=== PATIENT | male | born 1955 | race Two or more races ===

== ENCOUNTER 2018-10-06 19:29 | Emergency (ER) | payer MEDICAID ==
[~2018-10-06] VITALS: Ht 157.5 cm; Wt 64.5 kg
[~2018-10-06 19:29] MED LIST: ADVAIR PO; AMLO-512 PO; ASPI81 PO; CALC25 PO; CARV6 PO; FOLI1TAB61 PO; HYDR-2924 PO; SEVEC800 PO
[2018-10-06 20:01] LABS: GLUCOSE,POINT OF CARE 149 MG/DL (70-110)
[2018-10-06 21:06] LABS: BASOPHILS % (AUTO) 1.2 % (0.0-2.0); EOSINOPHILS % (AUTO) 2.5 % (1.0-6.0); HEMATOCRIT 29.6 % (41-53); HEMOGLOBIN 9.2 g/dL (13.5-17.5); LYMPHOCYTES # (AUTO) 1.7 K/uL (1.0-4.8); LYMPHOCYTES % (AUTO) 25.1 % (22.0-44.0); MEAN CORPUSCULAR HEMOGLOBIN 26.2 pg (26.0-34.0); MEAN CORPUSCULAR HGB CONC 31.2 G/dL (31.0-37.0); MEAN CORPUSCULAR VOLUME 84 fL (80-100); MONOCYTES # (AUTO) 0.6 K/uL (0.1-1.0); MONOCYTES % (AUTO) 8.8 % (2.0-9.0); NEUTROPHILS # (AUTO) 4.2 K/uL (1.8-7.7); NEUTROPHILS % (AUTO) 62.4 % (40.0-70.0); PLATELET COUNT (AUTO) 396 K/uL (150-450); RED BLOOD CELL COUNT(AUTO) 3.52 MIL/uL (4.50-5.90); RED CELL DISTRIBUTION WIDTH 16.2 % (11.5-14.5)
[2018-10-06 21:18] LABS: CALCIUM, TOTAL 8.8 mg/dL (8.8-10.5); CREATININE 3.96 mg/dL (0.60-1.30); POTASSIUM 5.1 mmol/L (3.5-5.1)
[2018-10-06 21:19] LABS: PROTHROMBIN TIME 10.4 SEC (9.4-11.6)
[2018-10-06 21:25] LABS: ALBUMIN 2.8 g/dL (3.4-5.0); BILIRUBIN,TOTAL 0.2 mg/dL (0.1-1.0); TOTAL PROTEIN, SERUM 6.9 g/dL (6.4-8.2)
[2018-10-06] MEDS ORDERED: LORazepam 1 MG TABLET PO ONE (21:45)
[2018-10-06 21:48] LABS: APPEARANCE,URINE CLEAR (CLEAR); BILIRUBIN,URINE NEGATIVE (NEGATIVE); GLUCOSE, URINE (UA) 100 mg/dL (NEGATIVE); KETONES,URINE NEGATIVE (NEGATIVE); LEUKOCYTE ESTERASE ,URINE NEGATIVE (NEGATIVE); NITRATE,URINE NEGATIVE (NEGATIVE); OCCULT BLOOD,URINE NEGATIVE (NEGATIVE); PH,URINE 7.5 (5.0-8.0); PROTEIN,URINE SEE CONFIRM (NEGATIVE); UROBILINOGEN,URINE 0.2 mg/dL (<=1.0)
[2018-10-06 22:07] LABS: BACTERIA,URINE None Seen /HPF (None Seen); RBC,URINE 0-2 /HPF (0-2); WBC,URINE None Seen /HPF (0-5)
[2018-10-06 22:08] LABS: SQUAMOUS EPITHELIAL CELL,UR Rare /LPF (None Seen); SULFOSALICYLIC ACID,URINE 3+ (Negative)
[2018-10-06] MEDS ORDERED: DiphenhydrAMINE HCL 50 MG/ML VIAL IVP ONE (22:30)
[2018-10-06 22:54] VITALS: BP 139/78
== END 2018-10-06 23:03 | disposition home or self-care (01) ==
LOC: EMS 19:29
DX: I12.0 Hypertensive chronic kidney disease with stage 5 chronic kidney disease or end stage renal disease (principal); E11.22 Type 2 diabetes mellitus with diabetic chronic kidney disease; N18.6 End stage renal disease; F41.9 Anxiety disorder, unspecified; M62.838 Other muscle spasm; E78.00 Pure hypercholesterolemia, unspecified; J44.9 Chronic obstructive pulmonary disease, unspecified; Z99.2 Dependence on renal dialysis; Z79.82 Long term (current) use of aspirin
CPT/HCPCS: 36415; 71045; 80053; 81001; 82962; 83880; 84484; 85025; 85610; 85730; 93005; 96374; 99285; J1200

== ENCOUNTER 2022-05-16 14:02 | Inpatient (IN) | payer MEDICARE, OTHER ==
[~2022-05-16] VITALS: Ht 153 cm; Wt 66.1 kg
[~2022-05-16 14:02] MED LIST changes: +AMLO-258 PO; -AMLO-512 PO; +ASPI-1450 PO; -ASPI81 PO; +CALC0.2521 PO; -CALC25 PO; -HYDR-2924 PO; +HYDR50TA36 PO; +SEVE800T17 PO; -SEVEC800 PO
[2022-05-16 15:10] LABS: BASOPHILS % (AUTO) 0.6 % (0.0-2.0); EOSINOPHILS % (AUTO) 1.4 % (1.0-6.0); LYMPHOCYTES # (AUTO) 2.2 K/uL (1.0-4.8); LYMPHOCYTES % (AUTO) 30.5 % (22.0-44.0); MEAN CORPUSCULAR HEMOGLOBIN 27.2 pg (26.0-34.0); MEAN CORPUSCULAR HGB CONC 30.8 G/dL (31.0-37.0); MEAN CORPUSCULAR VOLUME 88 fL (80-100); MONOCYTES # (AUTO) 0.6 K/uL (0.1-1.0); MONOCYTES % (AUTO) 8.2 % (2.0-9.0); NEUTROPHILS # (AUTO) 4.4 K/uL (1.8-7.7); NEUTROPHILS % (AUTO) 59.3 % (40.0-70.0); PLATELET COUNT (AUTO) 226 K/uL (150-450); RED BLOOD CELL COUNT(AUTO) 2.08 MIL/uL (4.50-5.90); RED CELL DISTRIBUTION WIDTH 16.5 % (11.5-14.5)
[2022-05-16 15:17] LABS: HEMATOCRIT 18.4 % (41-53); HEMOGLOBIN 5.7 g/dL (13.5-17.5)
[2022-05-16 15:20] LABS: PROTHROMBIN TIME 10.4 SEC (9.4-11.6)
[2022-05-16 15:22] LABS: COVID AG,FIA SOURCE NASOPHARYNGEAL
[2022-05-16 15:23] LABS: CALCIUM, TOTAL 8.5 mg/dL (8.8-10.5); CREATININE 3.3 mg/dL (0.60-1.30); POTASSIUM 4.2 mmol/L (3.5-5.1)
[2022-05-16 15:29] LABS: ALBUMIN 3.2 g/dL (3.4-5.0); BILIRUBIN,TOTAL 0.4 mg/dL (0.1-1.0); TOTAL PROTEIN, SERUM 6.3 g/dL (6.4-8.2)
[2022-05-16] MEDS ORDERED: ACETAMINOPHEN 500 MG TABLET PO ONE (15:30)
[2022-05-16] MEDS ORDERED: DiphenhydrAMINE HCL 25 MG CAPSULE PO ONE (15:30)
[2022-05-16 15:41] LABS: LACTIC ACID 1.9 mmol/L (0.4-2.0)
[2022-05-16 15:50] LABS: % IRON SATURATION 27.5 % (30-44)
[2022-05-16 16:45] VITALS: BP 149/58
[2022-05-16 17:00] VITALS: BP 152/59
[2022-05-16 17:30] VITALS: BP 160/61
[2022-05-16 18:00] VITALS: BP 149/67
[2022-05-16] MEDS ORDERED: PANTOPRAZOLE SODIUM 80 MG in SODIUM CHLORIDE 0.9% 100 ML IV SCH (18:00)
[2022-05-16] MEDS ORDERED: PANTOPRAZOLE SODIUM 40 MG/VIAL IVP ONE (18:00)
[2022-05-16 19:00] LABS: HEMATOCRIT 23.5 % (41-53); HEMOGLOBIN 7.6 g/dL (13.5-17.5)
[2022-05-16] MEDS ORDERED: HYDROCODONE/ACETAMINOPHEN 5-325 MG TABLET PO PRN (21:15)
[2022-05-16] MEDS ORDERED: ZOLPIDEM TARTRATE 5 MG TABLET PO PRN (21:15)
[2022-05-16] MEDS ORDERED: ACETAMINOPHEN 325 MG TABLET PO PRN (21:15)
[2022-05-16] MEDS ORDERED: IPRATROPIUM BROMIDE 0.5 MG/2.5 ML NEB SOLUTION NEB PRN (21:15)
[2022-05-16] MEDS ORDERED: MORPHINE SULFATE 2 MG/ML SYRINGE IVP PRN (21:15)
[2022-05-16] MEDS ORDERED: ONDANSETRON HCL 4 MG/2 ML VIAL IVP PRN (21:15)
[2022-05-16] MEDS ORDERED: BISACODYL 10 MG RECTAL RECTAL SUPPOSITORY PR PRN (21:15)
[2022-05-16] MEDS ORDERED: MAGNESIUM HYDROXIDE SUSPENSION 30 ML UDCUP PO PRN (21:15)
[2022-05-16] MEDS ORDERED: ALBUTEROL SULFATE 2.5 MG/0.5 ML NEB SOLUTION NEB PRN (21:15)
[2022-05-16 21:56] LABS: HEMATOCRIT 22.7 % (41-53); HEMOGLOBIN 7.4 g/dL (13.5-17.5)
[2022-05-16] MEDS: METOPROLOL TARTRATE 25 MG TABLET PO SCH (22:09)
[2022-05-16 23:20] VITALS: BP 113/89
[2022-05-17] VITALS (7 sets, daily range): BP systolic 120–170; BP diastolic 50–66
[2022-05-17] MEDS ORDERED: PANTOPRAZOLE SODIUM 80 MG in SODIUM CHLORIDE 0.9% 100 ML IV SCH (06:00)
[2022-05-17 06:16] LABS: BASOPHILS % (AUTO) 0.6 % (0.0-2.0); EOSINOPHILS % (AUTO) 1.5 % (1.0-6.0); HEMOGLOBIN 7.6 g/dL (13.5-17.5); LYMPHOCYTES # (AUTO) 2.1 K/uL (1.0-4.8); LYMPHOCYTES % (AUTO) 31.3 % (22.0-44.0); MEAN CORPUSCULAR HEMOGLOBIN 28.4 pg (26.0-34.0); MEAN CORPUSCULAR HGB CONC 32.8 G/dL (31.0-37.0); MEAN CORPUSCULAR VOLUME 87 fL (80-100); MONOCYTES # (AUTO) 0.6 K/uL (0.1-1.0); MONOCYTES % (AUTO) 8.4 % (2.0-9.0); NEUTROPHILS # (AUTO) 3.9 K/uL (1.8-7.7); NEUTROPHILS % (AUTO) 58.2 % (40.0-70.0); PLATELET COUNT (AUTO) 219 K/uL (150-450); RED BLOOD CELL COUNT(AUTO) 2.66 MIL/uL (4.50-5.90)
[2022-05-17 07:11] LABS: CALCIUM, TOTAL 8.6 mg/dL (8.8-10.5); CHOL/HDL RATIO 4.6 (4.2-7.3); CREATININE 4.81 mg/dL (0.60-1.30); POTASSIUM 5.2 mmol/L (3.5-5.1)
[2022-05-17] MEDS ORDERED: PEG 3350/NA SULF,BICARB,CL/KCL 4000 ML SOLUTION PO ONE (08:00)
[2022-05-17] MEDS: FOLIC ACID/VIT B COMPLEX AND C TABLET PO SCH (08:24)
[2022-05-17] MEDS: HydrALAZINE HCL 50 MG TABLET PO SCH ×3 (08:25→20:42)
[2022-05-17] MEDS: AmLODIPine BESYLATE 10 MG TABLET PO SCH (08:25)
[2022-05-17] MEDS: METOPROLOL TARTRATE 25 MG TABLET PO SCH ×2 (08:25→20:42)
[2022-05-17] MEDS: ATORVASTATIN CALCIUM 40 MG TABLET PO SCH (08:25)
[2022-05-17] MEDS: CARVEDILOL 6.25 MG TABLET PO SCH ×2 (08:25→20:42)
[2022-05-17] MEDS: SEVELAMER CARBONATE 800 MG TABLET PO SCH ×3 (08:25→16:59)
[2022-05-17] MEDS: CALCITRIOL 0.25 MCG CAPSULE PO SCH (08:25)
[2022-05-17] MEDS ORDERED: [UNRECOGNIZED DRUG - OTHER] PO SCH (09:00)
[2022-05-17 10:04] LABS: HEMATOCRIT 24.2 % (41-53); HEMOGLOBIN 7.9 g/dL (13.5-17.5)
[2022-05-18] VITALS (15 sets, daily range): BP systolic 121–192; BP diastolic 51–84
[2022-05-18] MEDS: SEVELAMER CARBONATE 800 MG TABLET PO SCH ×3 (08:00→17:53)
[2022-05-18] MEDS: AmLODIPine BESYLATE 10 MG TABLET PO SCH (09:00)
[2022-05-18] MEDS: METOPROLOL TARTRATE 25 MG TABLET PO SCH ×2 (09:00→20:12)
[2022-05-18] MEDS: CARVEDILOL 6.25 MG TABLET PO SCH ×2 (09:00→20:12)
[2022-05-18] MEDS ORDERED: PANTOPRAZOLE SODIUM 80 MG in SODIUM CHLORIDE 0.9% 100 ML IV SCH (10:00)
[2022-05-18 10:24] LABS: BASOPHILS % (AUTO) 0.8 % (0.0-2.0); EOSINOPHILS % (AUTO) 1.3 % (1.0-6.0); HEMATOCRIT 22.8 % (41-53); HEMOGLOBIN 7.3 g/dL (13.5-17.5); LYMPHOCYTES # (AUTO) 1.3 K/uL (1.0-4.8); MEAN CORPUSCULAR HEMOGLOBIN 27.8 pg (26.0-34.0); MEAN CORPUSCULAR HGB CONC 31.8 G/dL (31.0-37.0); MEAN CORPUSCULAR VOLUME 88 fL (80-100); MONOCYTES # (AUTO) 0.6 K/uL (0.1-1.0); MONOCYTES % (AUTO) 8.7 % (2.0-9.0); NEUTROPHILS # (AUTO) 4.9 K/uL (1.8-7.7); NEUTROPHILS % (AUTO) 70.2 % (40.0-70.0); PLATELET COUNT (AUTO) 202 K/uL (150-450); RED BLOOD CELL COUNT(AUTO) 2.61 MIL/uL (4.50-5.90); RED CELL DISTRIBUTION WIDTH 15.9 % (11.5-14.5)
[2022-05-18] MEDS ORDERED: SODIUM CHLORIDE 0.9% 1,000 ML ONE (10:32)
[2022-05-18 10:34] LABS: CALCIUM, TOTAL 8.5 mg/dL (8.8-10.5); CREATININE 6.86 mg/dL (0.60-1.30); POTASSIUM 5.4 mmol/L (3.5-5.1)
[2022-05-18] MEDS ORDERED: EPOETIN ALFA 10,000 UNITS/ML VIAL SQ SCH (11:55)
[2022-05-18 11:58] LABS: % IRON SATURATION 15.8 % (30-44)
[2022-05-18] MEDS ORDERED: LIDOCAINE/PF 2% 5 ML VIAL IM ONE (12:00)
[2022-05-18] MEDS ORDERED: PROPOFOL 1% 20 ML VIAL IVP ONE (12:00)
[2022-05-18] MEDS: FOLIC ACID/VIT B COMPLEX AND C TABLET PO SCH (12:34)
[2022-05-18] MEDS: HydrALAZINE HCL 50 MG TABLET PO SCH ×3 (12:34→20:12)
[2022-05-18] MEDS: CALCITRIOL 0.25 MCG CAPSULE PO SCH (12:34)
[2022-05-18] MEDS: ATORVASTATIN CALCIUM 40 MG TABLET PO SCH (12:34)
[2022-05-18] MEDS ORDERED: SODIUM CHLORIDE 0.9% 2,000 ML ONE (16:06)
[2022-05-18 16:54] LABS: HEMATOCRIT 20.3 % (41-53); HEMOGLOBIN 6.6 g/dL (13.5-17.5)
[2022-05-18] MEDS ORDERED: SODIUM CHLORIDE 0.9% 250 ML IV ONE (17:12)
[2022-05-18] MEDS ORDERED: FOLI1TAB85 PO (17:32)
[2022-05-18] MEDS: PANTOPRAZOLE SODIUM 40 MG/VIAL IVP SCH (20:12)
[2022-05-18 20:24] LABS: HEMATOCRIT 31.5 % (41-53); HEMOGLOBIN 10.3 g/dL (13.5-17.5)
[2022-05-19 03:39] VITALS: BP 164/68
[2022-05-19 06:38] LABS: BASOPHILS % (AUTO) 0.7 % (0.0-2.0); HEMATOCRIT 29.7 % (41-53); LYMPHOCYTES # (AUTO) 1.9 K/uL (1.0-4.8); LYMPHOCYTES % (AUTO) 25.1 % (22.0-44.0); MEAN CORPUSCULAR HEMOGLOBIN 29.2 pg (26.0-34.0); MEAN CORPUSCULAR HGB CONC 33.6 G/dL (31.0-37.0); MEAN CORPUSCULAR VOLUME 87 fL (80-100); MONOCYTES # (AUTO) 0.7 K/uL (0.1-1.0); MONOCYTES % (AUTO) 9.7 % (2.0-9.0); NEUTROPHILS # (AUTO) 4.9 K/uL (1.8-7.7); NEUTROPHILS % (AUTO) 63.5 % (40.0-70.0); PLATELET COUNT (AUTO) 199 K/uL (150-450); RED BLOOD CELL COUNT(AUTO) 3.42 MIL/uL (4.50-5.90); RED CELL DISTRIBUTION WIDTH 15.3 % (11.5-14.5)
[2022-05-19 07:11] LABS: ALBUMIN 3.1 g/dL (3.4-5.0); BILIRUBIN,TOTAL 0.3 mg/dL (0.1-1.0); CALCIUM, TOTAL 8.2 mg/dL (8.8-10.5); CREATININE 4.66 mg/dL (0.60-1.30); POTASSIUM 4.9 mmol/L (3.5-5.1); TOTAL PROTEIN, SERUM 6.1 g/dL (6.4-8.2)
[2022-05-19 07:42] VITALS: BP 152/63
[2022-05-19] MEDS: FOLIC ACID/VIT B COMPLEX AND C TABLET PO SCH (09:43)
[2022-05-19] MEDS: PANTOPRAZOLE SODIUM 40 MG/VIAL IVP SCH (09:43)
[2022-05-19] MEDS: SEVELAMER CARBONATE 800 MG TABLET PO SCH ×2 (09:43→12:16)
[2022-05-19] MEDS: ATORVASTATIN CALCIUM 40 MG TABLET PO SCH (09:44)
[2022-05-19] MEDS: CALCITRIOL 0.25 MCG CAPSULE PO SCH (09:44)
[2022-05-19] MEDS: CARVEDILOL 6.25 MG TABLET PO SCH (09:44)
[2022-05-19] MEDS: HydrALAZINE HCL 50 MG TABLET PO SCH (09:44)
[2022-05-19] MEDS: METOPROLOL TARTRATE 25 MG TABLET PO SCH (09:44)
[2022-05-19] MEDS: AmLODIPine BESYLATE 10 MG TABLET PO SCH (09:44)
[2022-05-19] MEDS ORDERED: ASPIRIN 81 MG DR TABLET PO SCH (10:00)
[2022-05-19 11:22] VITALS: BP 155/56
[2022-05-19] MEDS ORDERED: ATOR40TA28 PO (12:30)
[2022-05-19] MEDS ORDERED: METO25 PO (12:31)
[2022-05-19] MEDS ORDERED: PANT-31 PO (12:31)
== END 2022-05-19 12:55 | disposition home or self-care (01) | DRG 377 ==
LOC: EMS 14:17 → 5S 15:56
PROVIDERS: ADMIT Hospitalist; ATTEND Hospitalist
PROC: 30233N1 Transfusion of Nonautologous Red Blood Cells into Peripheral Vein, Percutaneous Approach (ICD-10-PCS; principal; 2022-05-16)
PROC: 0DJD8ZZ Inspection of Lower Intestinal Tract, Via Natural or Artificial Opening Endoscopic (ICD-10-PCS; 2022-05-18)
PROC: 5A1D70Z Performance of Urinary Filtration, Intermittent, Less than 6 Hours Per Day (ICD-10-PCS; 2022-05-18)
DX: K92.2 Gastrointestinal hemorrhage, unspecified (principal); I21.4 Non-ST elevation (NSTEMI) myocardial infarction; N18.6 End stage renal disease; I12.0 Hypertensive chronic kidney disease with stage 5 chronic kidney disease or end stage renal disease; N25.81 Secondary hyperparathyroidism of renal origin; E87.20 Acidosis, unspecified; D62 Acute posthemorrhagic anemia; K62.7 Radiation proctitis; J44.9 Chronic obstructive pulmonary disease, unspecified; E78.00 Pure hypercholesterolemia, unspecified; E11.22 Type 2 diabetes mellitus with diabetic chronic kidney disease; Z20.822 Contact with and (suspected) exposure to COVID-19; D63.8 Anemia in other chronic diseases classified elsewhere; E83.39 Other disorders of phosphorus metabolism; E87.5 Hyperkalemia; K62.1 Rectal polyp; Z86.73 Personal history of transient ischemic attack (TIA), and cerebral infarction without residual deficits; Z85.46 Personal history of malignant neoplasm of prostate; Z99.2 Dependence on renal dialysis; Y84.2 Radiological procedure and radiotherapy as the cause of abnormal reaction of the patient, or of later complication, without mention of misadventure at the time of the procedure
CPT/HCPCS: 71045; 80048; 80053; 80061; 82271; 82728; 83540; 83550; 83605; 83690; 83880; 84484; 85014; 85018; 85025; 85610; 86850; 86900; 86901; 86923; 87340; 90935; 93005; 93306; 99291; C9113; J0885; J2704; J3490; J7030; J7050; P9016; 36415-L1; 36415-TC; Z7610